=== PATIENT | male | born 1975 | race Hispanic/Latino ===

== ENCOUNTER 2019-02-07 16:18 | Emergency (ER) | payer BC, SELFPAY ==
[2019-02-07] MEDS ORDERED: MORPHINE 4 MG/ML SYR ONE (16:47)
[2019-02-07] MEDS ORDERED: KETOROLAC 30 MG/ML INJ ONE (16:47)
[2019-02-07] MEDS ORDERED: ONDANSETRON 4 MG/2 ML VIAL ONE (16:47)
[2019-02-07] MEDS ORDERED: NA CHLORIDE 0.9% 1,000 ML ONE ×2 (16:47→17:22)
[2019-02-07 17:04] LABS: Absolute Lymphocytes (CBC) 4.9 K/uL (0.7-4.9); Eosinophils % 0.6 % (0-4.4); Hematocrit 48.3 % (39.6-49.0); MPV 8.9 fL (7.6-11.3); Monocytes % 5.8 % (3.3-12.3); RBC Red Blood Cell Count 5.51 M/uL (4.33-5.43)
[2019-02-07] MEDS ORDERED: TAMSULOSIN 0.4 MG SR CAP ONE (17:12)
--- NOTE | 2019-02-07 17:13 | RAD REPORT ---
EXAM DESCRIPTION: CT - Stone Protocol - 02/07/2019 4:42 pm CLINICAL HISTORY: Abdominal pain. Left lower quadrant pain COMPARISON: 2013 TECHNIQUE: Computed axial tomography of the abdomen pelvis was obtained without oral or IV contrast. Lack of IV and oral contrast limits evaluation of solid organs, bowel, and vessels. Coronal reformat candice images were obtained and reviewed. All CT scans are performed using dose optimization technique as appropriate and may include automated exposure control or mA/KV adjustment according to patient size. FINDINGS: Tiny bilateral renal calculi. Mild left hydronephrosis. 3 millimeter calculus proximal lef t ureter Hounsfield unit 580. . The liver, spleen, pancreas and adrenals appear grossly normal There is no evidence of diverticulitis. The appendix appears normal Small bilateral inguinal hernia contains fat IMPRESSION: 3 millimeter calculus proximal left ureter resulting in mild left hydronephrosis
[2019-02-07 17:16] LABS: Albumin 4.5 g/dL (3.4-5.0); Bilirubin Direct 0.1 mg/dL (0-0.2); Bilirubin Total 0.3 mg/dL (0.2-1.0); Potassium 3.7 mmol/L (3.5-5.1); Protein, Total 7.5 g/dL (6.4-8.2)
[2019-02-07] MEDS ORDERED: HYDROMORPHONE HCL 1 MG/ML INJ ONE (17:22)
--- NOTE | 2019-02-07 17:56 | ER ---
Nurse's Notes [facility] Name: Carlos San Age: 44 yrs Sex: Male : 1975 Arrival Date: 02/07/2019 Time: 16:18 Bed 23 Private MD: Diagnosis: Abdominal tenderness;Hydronephrosis with renal and ureteral calculous obstruction Presentation: 02/07 16:18 Presenting complaint: Patient states: LLQ pain that began this morning, pt also reports aa5 nausea. 16:18 Transition of care: patient was not received from another setting of care. Onset of aa5 symptoms was February 07, 2019. Risk Assessment: Do you want to hurt yourself or someone else? Patient reports no desire to harm self or others. Initial Sepsis Screen: Does the patient meet any 2 criteria? No. Patient's initial sepsis screen is negative. Does the patient have a suspected source of infection? No. Patient's initial sepsis screen is negative. Care prior to arrival: None. 16:18 Acuity: NORA 3 aa5 16:18 Method Of Arrival: Ambulatory aa5 Historical: - Allergies: 16:26 No Known Allergies; aa5 - Home Meds: 16:26 "Pain pill from [place]" [Active]; aa5 - PMHx: 16:26 Back pain; aa5 - PSHx: 16:26 None; aa5 - Immunization history:: Adult Immunizations unknown. - Social history:: Smoking status: Patient uses tobacco products, denies chronic smoking, but will smoke occasionally. - Ebola Screening: : No symptoms or risks identified at this time. - Family history:: not pertinent. Screenin:30 Abuse screen: Denies threats or abuse. Denies injuries from another. Nutritional ca1 screening: No deficits noted. Tuberculosis screening: No symptoms or risk factors identified. Fall Risk IV access (20 points). Assessment: 16:30 General: Appears in no apparent distress. uncomfortable, Behavior is cooperative, ca1 appropriate for age. Pain: Complains of pain in left lower quadrant and left testicle Pain currently is 10 out of 10 on a pain scale. Pain began 4 hours ago. Is intermittent. Neuro: Level of Consciousness is awake, alert, obeys commands, Oriented to person, place, time, situation. Cardiovascular: Heart tones S1 S2 present Capillary refill < 3 seconds Patient's skin is warm and dry. Pulses are all present. Respiratory: Airway is patent Respiratory effort is even, unlabored, Respiratory pattern is regular, symmetrical, Breath sounds are clear bilaterally. GI: Abdomen is round non-distended, Pt is actively vomiting undigested food, Bowel sounds present X 4 quads. Abd is soft X 4 quads Abdomen is tender to palpation in left lower quadrant Reports nausea, vomiting, since this morning. : No deficits noted. No signs and/or symptoms were reported regarding the genitourinary system. EENT: No deficits noted. No signs and/or symptoms were reported regarding the EENT system. Derm: Skin is intact, is healthy with good turgor, Skin is pink, warm \\T\\ dry. Musculoskeletal: Circulation, motion, and sensation intact. Capillary refill < 3 seconds, Range of motion: intact in all extremities. 17:11 Reassessment: Patient appears in no apparent distress at this time. Patient and/or ca1 family updated on plan of care and expected duration. Pain level reassessed. Patient is alert, oriented x 3, equal unlabored respirations, skin warm/dry/pink. No reports of nausea and vomiting at this time. 18:25 Reassessment: Patient appears in no apparent distress at this time. Patient and/or ca1 family updated on plan of care and expected duration. Pain level reassessed. Patient is alert, oriented x 3, equal unlabored respirations, skin warm/dry/pink. Patient states feeling better. Vital Signs: 16:20 BP 154 / 92; Pulse 82; Resp 16 S; Temp 97.7(TE); Pulse Ox 99% on R/A; Pain 10/10; aa5 17:11 BP 150 / 99; Pulse 72; Resp 17 S; Pulse Ox 99% on R/A; ca1 17:49 BP 150 / 90; Pulse 80; Resp 17; Pulse Ox 98% ; rv 18:25 BP 148 / 87; Pulse 82; Resp 17 S; Pulse Ox 99% on R/A; ca1 ED Course: 16:18 Patient arrived in ED. as 16:18 Arm band placed on. aa5 16:23 Glenn Lau MD is Attending Physician. [facility] 16:23 Minal Burt, HERBER is Primary Nurse. ca1 16:25 Triage completed. aa5 16:30 Patient has correct armband on for positive identification. Placed in gown. Bed in low ca1 position. Call light in reach. Side rails up X 1. Pulse ox on. NIBP on. Warm blanket given. 16:[address] via wheelchair. nj 16:40 Initial lab(s) drawn, by me, sent to lab. Inserted saline lock: 20 gauge in left wrist, iw using aseptic technique. Blood collected. 16:42 CT Stone Protocol In Process Unspecified. EDMS 17:56 Angel Vuong MD is Referral Physician. ladi 18:26 No provider procedures requiring assistance completed. IV discontinued, intact, ca1 bleeding controlled, No redness/swelling at site. Pressure dressing applied. Administered Medications: 16:30 Drug: NS 0.9% 1000 ml Route: IV; Rate: 1 bolus; Site: left antecubital; ca1 17:26 Follow up: Urine output 160 ml; Response: No adverse reaction; IV Status: Completed ca1 infusion 16:30 Drug: Zofran 4 mg Route: IVP; Site: left antecubital; ca1 16:59 Follow up: Response: No adverse reaction; Nausea is decreased ca1 16:32 Drug: morphine 4 mg Route: IVP; Site: left antecubital; ca1 16:59 Follow up: Response: No adverse reaction; Pain is decreased ca1 16:36 Drug: TORadol 30 mg Route: IVP; Site: left antecubital; ca1 16:59 Follow up: Response: No adverse reaction; Pain is decreased ca1 16:59 Drug: Flomax 0.4 mg Route: PO; ca1 17:26 Follow up: Response: No adverse reaction ca1 17:08 Drug: Dilaudid 1 mg Route: IVP; Site: left antecubital; ca1 17:26 Follow up: Response: No adverse reaction; Pain is decreased ca1 17:26 Drug: NS 0.9% 1000 ml Route: IV; Rate: 1 bolus; Site: left antecubital; ca1 18:20 Follow up: Response: No adverse reaction; IV Status: Completed infusion ca1 Output: 17:26 Urine: 160ml; Total: 160ml. ca1 Outcome: 17:56 Discharge ordered by . ladi 18:26 Discharged to home ambulatory. ca1 18:26 Condition: stable 18:26 Discharge instructions given to patient, Instructed on discharge instructions, follow up and referral plans. medication usage, Demonstrated understanding of instructions, follow-up care, medications, Prescriptions given X 4. 18:27 Patient left the ED. ca1 Signatures: Dispatcher [employer] EDKY Glenn Lau MD MD cha Martinez, Amelia as Williams, Irene, RN RN Vonda Boothe RN RN Chilo Sharma Ronaldo, RN RN rv Minal Burt RN RN ca1
--- NOTE | 2019-02-07 17:56 | EDPHYS ---
Physician Documentation [facility] Name: Carlos San Age: 44 yrs Sex: Male : 1975 Arrival Date: 02/07/2019 Time: 16:18 Bed 23 Private MD: ED Physician Glenn Lau HPI: 02/07 16:35 This 44 yrs old Male presents to ER via Ambulatory with complaints of ladi Abdominal Pain. 16:35 The patient presents with abdominal pain in the lower abdomen, abdominal distention. ladi Onset: The symptoms/episode began/occurred this morning. The patient presents with tenderness, of the left testicle. Onset: The symptoms/episode began/occurred just prior to arrival. Modifying factors: The symptoms are alleviated by nothing, the symptoms are aggravated by nothing. Associated signs and symptoms: The patient has no apparent associated signs or symptoms. Associated signs and symptoms: none. Severity of pain: At its worst the pain was moderate severe this morning, in the emergency department the pain is unchanged. Historical: - Allergies: 16:26 No Known Allergies; aa5 - Home Meds: 16:26 "Pain pill from [place]" [Active]; aa5 - PMHx: 16:26 Back pain; aa5 - PSHx: 16:26 None; aa5 - Immunization history:: Adult Immunizations unknown. - Social history:: Smoking status: Patient uses tobacco products, denies chronic smoking, but will smoke occasionally. - Ebola Screening: : No symptoms or risks identified at this time. - Family history:: not pertinent. ROS: 16:35 Constitutional: Negative for fever, chills, and weight loss, Eyes: Negative for injury, ladi pain, redness, and discharge, ENT: Negative for injury, pain, and discharge, Neck: Negative for injury, pain, and swelling, Cardiovascular: Negative for chest pain, palpitations, and edema, Respiratory: Negative for shortness of breath, cough, wheezing, and pleuritic chest pain, Back: Negative for injury and pain, : Negative for injury, bleeding, discharge, and swelling, MS/Extremity: Negative for injury and deformity, Skin: Negative for injury, rash, and discoloration, Neuro: Negative for headache, weakness, numbness, tingling, and seizure, Psych: Negative for depression, anxiety, suicide ideation, homicidal ideation, and hallucinations, Allergy/Immunology: Negative for hives, rash, and allergies, Endocrine: Negative for neck swelling, polydipsia, polyuria, polyphagia, and marked weight changes, Hematologic/Lymphatic: Negative for swollen nodes, abnormal bleeding, and unusual bruising. 16:35 Abdomen/GI: Positive for abdominal pain, of the left lower quadrant. Exam: 16:35 Constitutional: This is a well developed, well nourished patient who is awake, alert, ladi and in no acute distress. Head/Face: Normocephalic, atraumatic. Eyes: Pupils equal round and reactive to light, extra-ocular motions intact. Lids and lashes normal. Conjunctiva and sclera are non-icteric and not injected. Cornea within normal limits. Periorbital areas with no swelling, redness, or edema. ENT: Nares patent. No nasal discharge, no septal abnormalities noted. Tympanic membranes are normal and external auditory canals are clear. Oropharynx with no redness, swelling, or masses, exudates, or evidence of obstruction, uvula midline. Mucous membranes moist. Neck: Trachea midline, no thyromegaly or masses palpated, and no cervical lymphadenopathy. Supple, full range of motion without nuchal rigidity, or vertebral point tenderness. No Meningismus. Chest/axilla: Normal chest wall appearance and motion. Nontender with no deformity. No lesions are appreciated. Cardiovascular: Regular rate and rhythm with a normal S1 and S2. No gallops, murmurs, or rubs. Normal PMI, no JVD. No pulse deficits. Respiratory: Lungs have equal breath sounds bilaterally, clear to auscultation and percussion. No rales, rhonchi or wheezes noted. No increased work of breathing, no retractions or nasal flaring. Back: No spinal tenderness. No costovertebral tenderness. Full range of motion. Male : Normal genitalia with no discharge or lesions. Skin: Warm, dry with normal turgor. Normal color with no rashes, no lesions, and no evidence of cellulitis. MS/ Extremity: Pulses equal, no cyanosis. Neurovascular intact. Full, normal range of motion. Neuro: Awake and alert, GCS 15, oriented to person, place, time, and situation. Cranial nerves II-XII grossly intact. Motor strength 5/5 in all extremities. Sensory grossly intact. Cerebellar exam normal. Normal gait. Psych: Awake, alert, with orientation to person, place and time. Behavior, mood, and affect are within normal limits. 16:35 Abdomen/GI: Inspection: abdomen appears normal, Bowel sounds: normal, Palpation: mild abdominal tenderness, in the left lower quadrant, Liver: no appreciated palpable abnormalities, Hernia: not appreciated. Vital Signs: 16:20 BP 154 / 92; Pulse 82; Resp 16 S; Temp 97.7(TE); Pulse Ox 99% on R/A; Pain 10/10; aa5 17:11 BP 150 / 99; Pulse 72; Resp 17 S; Pulse Ox 99% on R/A; ca1 17:49 BP 150 / 90; Pulse 80; Resp 17; Pulse Ox 98% ; rv 18:25 BP 148 / 87; Pulse 82; Resp 17 S; Pulse Ox 99% on R/A; ca1 MDM: 16:23 Patient medically screened. [facility] 16:35 Data reviewed: vital signs, nurses notes, lab test result(s), radiologic studies, CT ladi scan. 02/07 16:27 Order name: Basic Metabolic Panel [facility] 02/07 16:27 Order name: CBC with Diff [facility] 02/07 16:27 Order name: Creatinine for Radiology [facility] 02/07 16:27 Order name: Hepatic Function; Complete Time: 17:55 [facility] 02/07 16:27 Order name: Lipase; Complete Time: 17:55 [facility] 02/07 16:27 Order name: Urine Culture [facility] 02/07 16:27 Order name: CT Stone Protocol; Complete Time: 17:55 [facility] 02/07 16:28 Order name: Basic Metabolic Panel; Complete Time: 17:55 [facility] 02/07 16:28 Order name: CBC with Automated Diff; Complete Time: 17:55 [facility] 02/07 16:28 Order name: Creatinine (Radiology Only); Complete Time: 17:55 [facility] 02/07 16:58 Order name: Urine Dipstick--Ancillary (enter results) 02/07 16:27 Order name: IV Saline Lock; Complete Time: 16:37 [facility] 02/07 16:27 Order name: Labs collected and sent; Complete Time: 16:37 [facility] 02/07 16:27 Order name: Urine Dipstick-Ancillary (obtain specimen); Complete Time: 17:00 [facility] Administered Medications: 16:30 Drug: NS 0.9% 1000 ml Route: IV; Rate: 1 bolus; Site: left antecubital; ca1 17:26 Follow up: Urine output 160 ml; Response: No adverse reaction; IV Status: Completed ca1 infusion 16:30 Drug: Zofran 4 mg Route: IVP; Site: left antecubital; ca1 16:59 Follow up: Response: No adverse reaction; Nausea is decreased ca1 16:32 Drug: morphine 4 mg Route: IVP; Site: left antecubital; ca1 16:59 Follow up: Response: No adverse reaction; Pain is decreased ca1 16:36 Drug: TORadol 30 mg Route: IVP; Site: left antecubital; ca1 16:59 Follow up: Response: No adverse reaction; Pain is decreased ca1 16:59 Drug: Flomax 0.4 mg Route: PO; ca1 17:26 Follow up: Response: No adverse reaction ca1 17:08 Drug: Dilaudid 1 mg Route: IVP; Site: left antecubital; ca1 17:26 Follow up: Response: No adverse reaction; Pain is decreased ca1 17:26 Drug: NS 0.9% 1000 ml Route: IV; Rate: 1 bolus; Site: left antecubital; ca1 18:20 Follow up: Response: No adverse reaction; IV Status: Completed infusion ca1 Disposition: 02/07/19 17:56 Discharged to Home. Impression: Abdominal tenderness, Hydronephrosis with renal and ureteral calculous obstruction. - Condition is Stable. - Discharge Instructions: Abdominal Pain, Adult, Kidney Stones, Nausea and Vomiting, Adult, Kidney Stones, Stre-[id number], Abdominal Pain, Adult, Pqgm-dy-[id number], Hydronephrosis, Dietary Guidelines to Help Prevent Kidney Stones. - Prescriptions for Tylenol- Codeine #3 300-30 mg Oral Tablet - take 2 tablet by ORAL route every 6 hours As needed; 30 tablet. Zofran 4 mg Oral Tablet - take 1 tablet by ORAL route every 12 hours As needed; 20 tablet. Flomax 0.4 mg Oral Capsule, Sust. Release 24 hr - take 1 capsule by ORAL route once daily 1/2 hour following the same meal each day; 30 capsule. Cipro 500 mg Oral Tablet - take 1 tablet by ORAL route every 12 hours for 7 days; 14 tablet. - Medication Reconciliation Form, Thank You Letter, Antibiotic Education, Prescription Opioid Use form. - Follow up: Private Physician; When: 2 - 3 days; Reason: Recheck today's complaints, Continuance of care, Re-evaluation by your physician. Follow up: Angel Vuong; When: 2 - 3 days; Reason: Recheck today's complaints, Continuance of care, Re-evaluation by your physician. - Problem is new. - Symptoms have improved. Signatures: Dispatcher [employer] EDGlenn Christina MD MD cha Calderon, Audri RN RN aa5 Minal Burt RN RN ca1 Corrections: (The following items were deleted from the chart) 18:27 17:56 02/07/2019 17:56 Discharged to Home. Impression: Abdominal tenderness; ca1 Hydronephrosis with renal and ureteral calculous obstruction. Condition is Stable. Discharge Instructions: Abdominal Pain, Adult, Kidney Stones, Nausea and Vomiting, Adult, Kidney Stones, Czcr-he-[id number], Abdominal Pain, Adult, Vwqd-oc-Cfsv, Hydronephrosis, Dietary Guidelines to Help Prevent Kidney Stones. Prescriptions for Tylenol-Codeine #3 300-30 mg Oral Tablet - take 2 tablet by ORAL route every 6 hours As needed; 30 tablet, Zofran 4 mg Oral Tablet - take 1 tablet by ORAL route every 12 hours As needed; 20 tablet, Flomax 0.4 mg Oral Capsule, Sust. Release 24 hr - take 1 capsule by ORAL route once daily 1/2 hour following the same meal each day; 30 capsule, Cipro 500 mg Oral Tablet - take 1 tablet by ORAL route every 12 hours for 7 days; 14 tablet. and Forms are Medication Reconciliation Form, Thank You Letter, Antibiotic Education, Prescription Opioid Use. Follow up: Private Physician; When: 2 - 3 days; Reason: Recheck today's complaints, Continuance of care, Re-evaluation by your physician. Follow up: Angel Vuong; When: 2 - 3 days; Reason: Recheck today's complaints, Continuance of care, Re-evaluation by your physician. Problem is new. Symptoms have improved. ladi
[2019-02-07 20:10] LABS: Urine Blood 3+ (NEG); Urine Glucose NEGATIVE (NEG); Urine Protein 2+ (NEG); Urine Specific Gravity >1.030 (1.005-1.030); Urine pH 5.5 (5.0-7.0)
== END 2019-02-07 18:27 | disposition home or self-care (01) ==
LOC: ER 16:18
DX: N13.2 Hydronephrosis with renal and ureteral calculous obstruction (principal)
CPT/HCPCS: 36415; 74176; 76377; 80048; 80076; 81003; 83690; 85025; 87086; 87088; 96361; 96374; 96375; 99284; J1170; J2405; J7030

== ENCOUNTER 2021-08-27 14:48 | Emergency (ER) | payer OTHER ==
[2021-08-27 16:59] LABS: Urine Blood Negative (Negative); Urine Glucose Negative (Negative); Urine Protein Negative (Negative); Urine Specific Gravity >=1.030 (1.005-1.030)
--- NOTE | 2021-08-27 17:00 | RAD REPORT ---
EXAM DESCRIPTION: CTStone Protocol - 08/27/2021 4:49 pm CLINICAL HISTORY: ABD PAIN COMPARISON: Stone Protocol dated 02/07/2019; CT ABD PELVIS W CONTRAST dated 06/28/2014 TECHNIQUE: CT of the abdomen and pelvis was performed. All CT scans are performed using dose optimization technique as appropriate and may include automated exposure control or mA/KV adjustment according to patient size. FINDINGS: Lower chest: No acute abnormality. Liver: No acute abnormality or suspicious lesions. Biliary: No biliary ductal dilatation. Stomach: No significant focal abnormality. Duodenum: No significant focal abnormality. Pancreas: No significant abnormality. Spleen: No significant abnormality. Adrenal: No suspicious lesions. Kidney/ureter: No hydronephrosis. Punctate stones present bilaterally. No ureteral calculi. Retroperitoneum: No retroperitoneal adenopathy. Vascular: No aneurysm. Bowel: No significant focal abnormality. Normal appendix. Peritoneum: No ascites or free air. Bladder: Grossly unremarkable. Reproductive: No adnexal masses. Bones: No acute fracture. Other: n/a IMPRESSION: No acute intra-abdominal or pelvic finding. Nonobstructive bilateral nephrolithiasis. No rmal appendix.
--- NOTE | 2021-08-27 17:12 | ER ---
Nurse's Notes [facility] Name: Carlos San Age: 46 yrs Sex: Male : 1975 Arrival Date: 08/27/2021 Time: 15:05 Bed 23 Private MD: Diagnosis: Low back pain Presentation: 08/27 15:05 Chief complaint: Patient states: L lower back pain with slight dysuria for 1 week. ll1 Worried about another kidney stone. Coronavirus screen: Vaccine status: Patient reports receiving the 2nd dose of the covid vaccine. Client denies travel out of the [place] in the last 14 days. At this time, the client does not indicate any symptoms associated with coronavirus-19. Ebola Screen: Patient denies travel to an Ebola-affected area in the 21 days before illness onset. Initial Sepsis Screen: Does the patient meet any 2 criteria? No. Patient's initial sepsis screen is negative. Does the patient have a suspected source of infection? Yes: Dysuria/Frequency/Urgency/UTI. Risk Assessment: Do you want to hurt yourself or someone else? Patient reports no desire to harm self or others. Onset of symptoms was August 19, 2021. 15:05 Method Of Arrival: Ambulatory ll1 15:05 Acuity: NORA 3 ll1 Historical: - Allergies: 15:06 No Known Allergies; ll1 - PMHx: 15:06 Back pain; ll1 - PSHx: 15:06 None; ll1 - Immunization history:: Client reports receiving the 2nd dose of the Covid vaccine. - Social history:: Smoking status: Patient reports the use of cigarette tobacco products, denies chronic smoking, but will smoke occasionally. Screenin:20 Abuse screen: Denies threats or abuse. Denies injuries from another. Nutritional jg9 screening: No deficits noted. Tuberculosis screening: No symptoms or risk factors identified. Fall Risk None identified. Assessment: 16:19 General: Appears in no apparent distress. Behavior is calm. Pain: Complains of pain in jg9 pelvis and back Pain currently is 6 out of 10 on a pain scale. Vital Signs: 15:05 BP 156 / 89; Pulse 85; Resp 17; Temp 98.6; Pulse Ox 100% ; Weight 104.33 kg; Height 6 ll1 ft. 0 in. (182.88 cm); Pain 6/10; 17:00 BP 132 / 77; Pulse 20; Resp 16 S; Pulse Ox 99% on R/A; jg9 17:30 BP 138 / 78; Pulse 78; Resp 16; Pulse Ox 99% on R/A; jg9 15:05 Body Mass Index 31.19 (104.33 kg, 182.88 cm) ll1 ED Course: 15:05 Patient arrived in ED. ll1 15:06 Triage completed. ll1 16:00 Arm band placed on Patient placed in an exam room, on a stretcher. ss 16:02 [facility]C [facility]. kb 16:02 Glenn Lau MD is Attending Physician. kb 16:11 Shanna Cruz, RN is Primary Nurse. jg9 16:20 Patient has correct armband on for positive identification. Bed in low position. Call jg9 light in reach. Side rails up X 1. 16:48 CT Stone Protocol In Process Unspecified. EDMS 17:00 No apparent distress. Resting quietly. Awaiting lab results, Awaiting radiology results.jg9 17:56 No provider procedures requiring assistance completed. jg9 17:56 Patient did not have IV access during this emergency room visit. jg9 Administered Medications: No medications were administered Outcome: 17:11 Discharge ordered by MD. kb 17:56 Discharged to home ambulatory. jg9 17:56 Condition: stable 17:56 Discharge instructions given to patient, Instructed on discharge instructions, follow up and referral plans. Demonstrated understanding of instructions, follow-up care, Prescriptions given X 1. 17:57 Patient left the ED. jg9 Signatures: Dispatcher [employer] EDAL Jodi Morse FNP-C FNP-Ckb Smirch, Shelby, RN RN ss Lewis, Lynsay, RN RN [facility] Shanna Cruz, RN RN jg9 Corrections: (The following items were deleted from the chart) 15:07 15:05 Pulse 85bpm; Resp 17bpm; Pulse Ox 100%; Temp 98.6F; 104.33 kg; Height 6 ft. 0 ll1 in.; BMI: 31.1; ll1 16:00 15:06 Arm band placed on Patient placed in an exam room, on a stretcher, 1
--- NOTE | 2021-08-27 17:12 | EDPHYS ---
Physician Documentation [facility] Name: Carlos San Age: 46 yrs Sex: Male : 1975 Arrival Date: 08/27/2021 Time: 15:05 Bed 23 Private MD: ED Physician Glenn Lau HPI: 08/27 17:08 This 46 yrs old Male presents to ER via Ambulatory with complaints of Low Back kb Pain. 17:08 The patient presents with pain that is acute. The symptoms are located in the low back. kb The pain does not radiate. The problem was sustained from unknown cause. Onset: The symptoms/episode began/occurred 1 week(s) ago. Modifying factors: The patient symptoms are alleviated by nothing, the patient symptoms are aggravated by any movement. Associated signs and symptoms: Pertinent positives: abdominal pain, dysuria. Severity of symptoms: At their worst the symptoms were mild, moderate, in the emergency department the symptoms are unchanged. The patient has not experienced similar symptoms in the past. The patient has been recently seen by a physician:. Pt states he has had low back/flank pain for a week. States he was seen by PCP and had labs and KUB ordered, but the KUB order got lost so he was told to come to the ER to have it done. States he has had a kidney stone in the past and is concerned that is what is causing the pain now. . Historical: - Allergies: 15:06 No Known Allergies; ll1 - PMHx: 15:06 Back pain; ll1 - PSHx: 15:06 None; ll1 - Immunization history:: Client reports receiving the 2nd dose of the Covid vaccine. - Social history:: Smoking status: Patient reports the use of cigarette tobacco products, denies chronic smoking, but will smoke occasionally. ROS: 17:07 Constitutional: Negative for fever, chills, and weight loss. kb 17:07 : Positive for urinary symptoms, flank pain, burning with urination. 17:07 All other systems are negative. Exam: 17:08 Constitutional: This is a well developed, well nourished patient who is awake, alert, kb and in no acute distress. Head/Face: Normocephalic, atraumatic. ENT: Moist Mucous membranes Cardiovascular: Regular rate and rhythm with a normal S1 and S2. No gallops, murmurs, or rubs. No pulse deficits. Respiratory: Respirations even and unlabored. No increased work of breathing. Talking in full sentences Abdomen/GI: Soft, non-tender. No distention Back: No spinal tenderness. No costovertebral tenderness. Full range of motion. Skin: Warm, dry with normal turgor. Normal color. MS/ Extremity: Pulses equal, no cyanosis. Neurovascular intact. Full, normal range of motion. Neuro: Awake and alert, GCS 15, oriented to person, place, time, and situation. Moves all extremities. Normal gait. Psych: Awake, alert, with orientation to person, place and time. Behavior, mood, and affect are within normal limits. Vital Signs: 15:05 BP 156 / 89; Pulse 85; Resp 17; Temp 98.6; Pulse Ox 100% ; Weight 104.33 kg; Height 6 ll1 ft. 0 in. (182.88 cm); Pain 6/10; 17:00 BP 132 / 77; Pulse 20; Resp 16 S; Pulse Ox 99% on R/A; jg9 17:30 BP 138 / 78; Pulse 78; Resp 16; Pulse Ox 99% on R/A; jg9 15:05 Body Mass Index 31.19 (104.33 kg, 182.88 cm) ll1 MDM: 16:02 Patient medically screened. kb 17:06 Data reviewed: vital signs, nurses notes. Data interpreted: Pulse oximetry: on room air kb is 100 %. Interpretation: normal. Counseling: I had a detailed discussion with the patient and/or guardian regarding: the historical points, exam findings, and any diagnostic results supporting the discharge/admit diagnosis, lab results, radiology results, the need for outpatient follow up, a family practitioner, to return to the emergency department if symptoms worsen or persist or if there are any questions or concerns that arise at home. 08/27 16:59 Order name: Urine Dipstick-Ancillary; Complete Time: 17:06 EDMS 08/27 16:21 Order name: CT Stone Protocol; Complete Time: 17:06 kb 08/27 15:58 Order name: Urine Dipstick-Ancillary (obtain specimen); Complete Time: 16:58 kb Administered Medications: No medications were administered Disposition Summary: 08/27/21 17:11 Discharge Ordered Location: Home kb Condition: Stable kb Diagnosis - Low back pain kb Followup: kb - With: Emergency Department - When: As needed - Reason: Worsening of condition Followup: kb - With: Private Physician - When: 2 - 3 days - Reason: Recheck today's complaints, Continuance of care, Re-evaluation by your physician Discharge Instructions: - Discharge Summary Sheet kb - Musculoskeletal Pain kb Forms: - Medication Reconciliation Form kb - Thank You Letter kb - Antibiotic Education kb - Prescription Opioid Use kb Prescriptions: - Diclofenac Sodium 75 mg Oral tablet,delayed release (DR/EC) - take 1 tablet by ORAL route 2 times per day As needed; 30 tablet; Refills: 0, kb Product Selection Permitted Addendum: 08/29/2021 07:09 Co-signature as Attending Physician, Glenn Lau MD I agree with the assessment and c mccann plan of care. Signatures: Dispatcher [employer] Jodi Geiger, TRAFFIC TECHNICIAN-C TRAFFIC TECHNICIAN-Glenn Siu MD MD cha Lewis, Lynsay, RN RN ll1
[2021-08-27 18:07] VITALS: TEMP 98.6
[2021-08-27 18:08] VITALS: O2SAT 99
[2021-08-27 18:09] VITALS: BP 138/78
== END 2021-08-27 17:57 | disposition home or self-care (01) ==
LOC: ER 14:48
DX: M54.50 Low back pain, unspecified (principal); Z87.442 Personal history of urinary calculi; F17.210 Nicotine dependence, cigarettes, uncomplicated
CPT/HCPCS: 74176; 76377; 81003; 99283